=== PATIENT | female | born 1975 | race Caucasian/White ===

== ENCOUNTER → 2017-01-21 | Outpatient (CLI) | payer OTHER ==
[~2017-01-21] MED LIST: ACID REDUCER 1150 MG PO; BENTYL10 MG PO; KLONOPIN0.5 M1 PO; LYRICA75 MG PO; NAPROSYN500 MG PO; NOHOMEMEDS; PRILOSEC20 MG PO; VALIUM5 MG PO; ZOFRAN4 MG PO
== END | disposition home or self-care (01) ==
LOC: CDC 16:02
DX: M25.562 Pain in left knee (principal); S83.282A Other tear of lateral meniscus, current injury, left knee, initial encounter
CPT/HCPCS: 93000

== ENCOUNTER 2017-02-22 06:04 | Emergency (ER) | payer OTHER ==
[~2017-02-22] VITALS: Ht 167.6 cm; Wt 75.6 kg
[2017-02-22 06:06] VITALS: BP 133/77
== END 2017-02-22 06:53 | disposition left against medical advice (07) ==
LOC: EME 06:04
DX: R51 Headache (principal); Z53.20 Procedure and treatment not carried out because of patient's decision for unspecified reasons; K21.9 Gastro-esophageal reflux disease without esophagitis; G89.29 Other chronic pain; M54.9 Dorsalgia, unspecified; M54.2 Cervicalgia; F17.200 Nicotine dependence, unspecified, uncomplicated
CPT/HCPCS: 99281; 99284

== ENCOUNTER 2017-05-23 05:33 | Emergency (ER) | payer OTHER ==
[~2017-05-23] VITALS: Ht 172.7 cm; Wt 74.6 kg
[2017-05-23] MEDS ORDERED: MEDROL DOSEPAK4 MG PO (06:03)
[2017-05-23 06:11] VITALS: BP 113/74
== END 2017-05-23 06:12 | disposition home or self-care (01) ==
LOC: EME → EDBD 05:33 → EME 06:12
DX: S16.1XXA Strain of muscle, fascia and tendon at neck level, initial encounter (principal); K08.89 Other specified disorders of teeth and supporting structures; F17.200 Nicotine dependence, unspecified, uncomplicated; R68.84 Jaw pain; M79.641 Pain in right hand
CPT/HCPCS: 99281; 99283; J1100

== ENCOUNTER 2017-05-29 21:25 | Emergency (ER) | payer OTHER ==
[~2017-05-29] VITALS: Ht 172.7 cm; Wt 75.5 kg
[~2017-05-29 21:25] MED LIST changes: +MEDROL DOSEPAK4 MG PO
[2017-05-29] MEDS ORDERED: zoloft (21:38)
[2017-05-29] MEDS ORDERED: oxycodone (21:38)
[2017-05-29] MEDS ORDERED: buspar (21:38)
[2017-05-29] MEDS ORDERED: proair (21:38)
[2017-05-29] MEDS ORDERED: protonix (21:38)
[2017-05-29] MEDS ORDERED: MORPHINE SULFATE (21:39)
[2017-05-29] MEDS ORDERED: klonopin (21:39)
[2017-05-29 22:13] LABS: CHLORIDE 104 mEq/L (99-109); POTASSIUM 3.7 mEq/L (3.7-5.4); SODIUM 138 mEq/L (136-147)
[2017-05-29 22:15] LABS: GLUCOSE 96 mg/dL (70-99)
[2017-05-29 22:16] LABS: ANION GAP 7 MEQ/L (2-14)
[2017-05-29 22:17] LABS: TOTAL BILIRUBIN 0.3 mg/dL (0.0-1.0)
[2017-05-29 22:18] LABS: HEMATOCRIT 37.8 % (36.0-46.0); MCH 31.5 PG (29.0-34.0); MCHC 33.9 G/DL (30.0-36.0); MCV 93.1 FL (83-99); MEAN PLAT.VOLUME 9.9 uM^3 (9.5-12.4); PLATELET COUNT 257 K/uL (156-360); RBC DIS.WIDTH-CV 12.1 % (11.8-14.6); RBC DIS.WIDTH-SD 41.9 % (39-53); RED BLOOD COUNT 4.06 M/uL (3.80-5.20); WHITE BLOOD COUNT 8.2 K/uL (4.1-10.2)
[2017-05-29 22:19] LABS: ALKALINE PHOSPHATASE 37 IU/L (3-129); GFR ESTIMATE (CALCULATED) > 59 mL/min/
[2017-05-29 22:20] LABS: UREA NITROGEN (BUN) 8 mg/dL (9-23)
[2017-05-29 22:24] LABS: TROP-I INTERPRETATION NEGATIVE; TROPONIN-I < 0.01 ng/mL (0.0-0.30)
[2017-05-29 23:36] VITALS: BP 103/61
== END 2017-05-29 23:38 | disposition home or self-care (01) ==
LOC: EME 21:25
PROVIDERS: Emergency Medicine Emergency Medical Services
DX: R07.89 Other chest pain (principal); R00.2 Palpitations; G43.909 Migraine, unspecified, not intractable, without status migrainosus; K21.9 Gastro-esophageal reflux disease without esophagitis; F17.200 Nicotine dependence, unspecified, uncomplicated; M79.7 Fibromyalgia
CPT/HCPCS: 80053; 84484; 85027; 93005; 99281; 99284

== ENCOUNTER 2017-09-17 02:46 | Emergency (ER) | payer OTHER ==
[~2017-09-17] VITALS: Ht 172.7 cm; Wt 71.5 kg
[~2017-09-17 02:46] MED LIST changes: +MORPHINE SULFATE; +buspar; +klonopin; +oxycodone; +proair; +protonix; +zoloft
[2017-09-17 04:19] VITALS: BP 104/70
== END 2017-09-17 04:19 | disposition home or self-care (01) ==
LOC: EME → EDBD 02:46 → EME 02:46
DX: R10.13 Epigastric pain (principal); R19.7 Diarrhea, unspecified; G89.29 Other chronic pain; Z79.891 Long term (current) use of opiate analgesic; F17.200 Nicotine dependence, unspecified, uncomplicated
CPT/HCPCS: 99281; 99283

== ENCOUNTER 2017-11-21 12:18 | Emergency (ER) | payer OTHER ==
[~2017-11-21] VITALS: Ht 172.7 cm; Wt 65.1 kg
[2017-11-21 14:18] VITALS: BP 116/69
== END 2017-11-21 14:19 | disposition home or self-care (01) ==
LOC: EME 12:18
DX: K04.7 Periapical abscess without sinus (principal); G50.0 Trigeminal neuralgia; R07.9 Chest pain, unspecified; K21.9 Gastro-esophageal reflux disease without esophagitis; F17.200 Nicotine dependence, unspecified, uncomplicated
CPT/HCPCS: 71046; 93005; 99281; 99284